=== PATIENT | female | born 1990 | race Caucasian/White ===

== ENCOUNTER 2021-01-16 06:40 | Emergency (ER) | payer SELFPAY ==
--- OUTSIDE RECORDS SUMMARY | 2021-01-16 06:43 | XMS REPORT | Continuity of Care Document ---
:1990 Author Organization [facility] t Address [address] [place] [address] Care Team Providers Name Role Phone Sharpless Primary Care Physician Earnestine Strickland DO Attending Clinician Doctor Unassigned, Name Attending Clinician Unavailable Lab, Fam Pob I Attending Clinician Unavailable Demetris ISAACS, H Attending Clinician Marilyn ISAACS, L Attending Clinician Chelsey ISAACS Attending Clinician Problems This patient has no known problems. Allergies, Adverse Reactions, Alerts This patient has no known allergies or adverse reactions. Social History Social Habit Start Date Stop Date Quantity Comments Source Sex Assigned At [facility] Alcohol Comment 2016-07-12 2016-07-12 occasional [facility] - 00:00:00 00:00:00 [facility] Alcohol intake 2016-07-12 2016-07-12 Current drinker of [facility] - 00:00:00 00:00:00 alcohol (finding) [facility] Smoking Status Start Date Stop Date Source Former smoker 2016-07-12 00:00:00 2016-07-12 00:00:00 [facility] Medications This patient has no known medications. Procedures This patient has no known procedures. Encounters Start End Encounter Admission Attending Care Care Encounter Source Date/Time Date/Time Type Type Clinicians Facility Department ID 2020-12-06 2020-12-06 Emergency Marco A, [facility] [id number] 08:38:00 12:39:00 Magda Corbin [id number] [place] [id number] [place] [id number] 2020-12-06 2020-12-06 Orders Doctor RAMONA [id number] 00:00:00 00:00:00 Only Unassigned, [place] [id number] [facility] [id number] 2020-01-17 2020-01-17 Laboratory Lab, [facility] [id number] 14:00:16 14:20:16 Only Fam Pob [facility] [id number] [place] [id number] [facility] [phone] n[place] [address] 2020-01-17 2020-01-17 Letter Doctor RAMONA [id number] 00:00:00 00:00:00 (Out) Unassigned, DEN [id number] [facility] [id number] 2019-10-16 2019-10-16 Orders Doctor GREENE [id number] 00:00:00 00:00:00 Only Unassigned, DEN [id number] [facility] [id number] 2019-10-06 2019-10-06 [facility] [id number] 08:49:36 16:20:38 ne Visit Reji Corbin [id number] [place] [id number] [place] [phone] [facility] 220 Building 2019-10-03 2019-10-03 Telephone Adum, [facility] [id number] 00:00:00 00:00:00 Yvette Corbin [id number] [place] [id number] [facility] [phone] [facility] 134 Building 2019-09-22 2019-09-22 [facility] 1.2.840.114 [id number] 00:00:00 00:00:00 Judy Corbin [id number] [place] [id number] Profess[facility] [phone] [facility] 220 Building 2019-09-22 2019-09-22 [facility] [id number] 00:00:00 00:00:00 (Out) Judy Corbin [id number] [place] [id number] Profess[facility] [phone] [facility] 220 [facility] 2019-08-28 2019-08-28 [facility] [id number] 07:56:48 09:23:28 Visit Yvette Polo [place] [id number] [place] [id number] [facility] [phone] [facility] 134 [facility] Results This patient has no known results.
[2021-01-16 08:21] LABS: SARS-COV-2 RT PCR NEGATIVE (NEGATIVE)
--- NOTE | 2021-01-16 08:41 | ER ---
Nurse's Notes [facility] Name: Juju Vega Age: 30 yrs Sex: Female : 1990 Arrival Date: 01/16/2021 Time: 06:43 Bed 24 Private MD: Diagnosis: Acute upper respiratory infection, unspecified Presentation: 01/16 07:10 Chief complaint: Patient states: sore throat, body aches, congestion, cough x 2 days aa5 ago. 07:10 Coronavirus screen: congestion, cough unrelated to allergies, sore throat. Ebola aa5 Screen: Patient negative for fever greater than or equal to 101.5 degrees Fahrenheit, and additional compatible Ebola Virus Disease symptoms. Initial Sepsis Screen: Does the patient meet any 2 criteria? No. Patient's initial sepsis screen is negative. Does the patient have a suspected source of infection? No. Patient's initial sepsis screen is negative. Risk Assessment: Do you want to hurt yourself or someone else? Patient reports no desire to harm self or others. Onset of symptoms was December 2020. 07:10 Method Of Arrival: Ambulatory aa5 07:10 Acuity: JOSE 4 aa5 Historical: - Allergies: 07:10 No Known Allergies; aa5 - PMHx: 07:10 kidney failure; Kidney stones; Pituitary tumor; aa5 - PSHx: 07:10 section; nephrostomy tubes; aa5 - Immunization history:: Adult Immunizations unknown. - Social history:: Smoking status: Patient denies any tobacco usage or history of. Screenin:57 Abuse screen: Denies threats or abuse. Denies injuries from another. Nutritional tr6 screening: No deficits noted. Tuberculosis screening: No symptoms or risk factors identified. Fall Risk None identified. Assessment: 08:56 General: Appears in no apparent distress. Behavior is calm, cooperative, appropriate tr6 for age. Pain: Complains of pain in headache and nasal congestion. Neuro: No deficits noted. Cardiovascular: No deficits noted. Capillary refill < 3 seconds Patient's skin is warm and dry. Respiratory: Airway is patent Breath sounds are clear. GI: No deficits noted. : No deficits noted. EENT: Reports nasal congestion. Derm: No deficits noted. Musculoskeletal: No deficits noted. Vital Signs: 07:10 BP 115 / 82; Pulse 89; Resp 16 S; Temp 97.5(TE); Pulse Ox 99% on R/A; Weight 74.84 kg aa5 (R); Height 5 ft. 7 in. (170.18 cm) (R); 07:10 Body Mass Index 25.84 (74.84 kg, 170.18 cm) aa5 ED Course: 06:43 Patient arrived in ED. es 07:10 Arm band placed on. aa5 07:12 Triage completed. aa5 07:14 Keegan Ruff PA is PHCP. cp 07:14 Mario Sewell MD is Attending Physician. cp 08:45 Svitlnaa Sandoval, RN is Primary Nurse. tr6 08:57 Patient has correct armband on for positive identification. Bed in low position. Adult tr6 w/ patient. Door closed. Noise minimized. Visitors limited. Lights dimmed. Moved to private room. 08:57 No provider procedures requiring assistance completed. Patient did not have IV access tr6 during this emergency room visit. Administered Medications: No medications were administered Outcome: 08:40 Discharge ordered by MD. cp 08:57 Discharged to home ambulatory. tr6 08:57 Condition: stable 08:57 Discharge instructions given to patient, Instructed on discharge instructions, Demonstrated understanding of instructions, follow-up care, medications, Prescriptions given X 2. 08:58 Patient left the ED. tr6 Signatures: Laura Crews Audri, RN RN aa5 Keegan Ruff PA PA cp Ramnanan, Tiffany, RN RN tr6
--- NOTE | 2021-01-16 08:41 | EDPHYS ---
Physician Documentation [facility] Name: Juju Vega Age: 30 yrs Sex: Female : 1990 Arrival Date: 01/16/2021 Time: 06:43 Bed 24 Private MD: ED Physician Mario Sewell HPI: 01/16 07:14 This 30 yrs old Female presents to ER via Ambulatory with complaints of cp Congestion, Body aches. 07:14 The patient or guardian reports cough, that is intermittent, flu symptoms, body aches. cp Onset: The symptoms/episode began/occurred 2 day(s) ago. Associated signs and symptoms: Pertinent positives: fever, sore throat, sinus congestion, Pertinent negatives: diarrhea, vomiting. Severity of symptoms: in the emergency department the symptoms have improved mildly. Historical: - Allergies: 07:10 No Known Allergies; aa5 - PMHx: 07:10 kidney failure; Kidney stones; Pituitary tumor; aa5 - PSHx: 07:10 section; nephrostomy tubes; aa5 - Immunization history:: Adult Immunizations unknown. - Social history:: Smoking status: Patient denies any tobacco usage or history of. ROS: 07:20 Constitutional: Positive for body aches, Negative for fever, poor PO intake. cp 07:20 Eyes: Negative for injury, pain, redness, and discharge. cp 07:20 ENT: Positive for sinus congestion, sore throat, Negative for drainage from ear(s), ear pain, difficulty swallowing, difficulty handling secretions. 07:20 Cardiovascular: Negative for chest pain, palpitations. 07:20 Respiratory: Positive for slight cough. 07:20 Abdomen/GI: Negative for abdominal pain, nausea, vomiting, and diarrhea. 07:20 Neuro: Negative for altered mental status, dizziness, headache, weakness. 07:20 All other systems are negative. Exam: 07:25 Constitutional: The patient appears in no acute distress, alert, awake, comfortable, cp non-toxic, well developed, well nourished. 07:25 Head/Face: Normocephalic, atraumatic. cp 07:25 Eyes: Periorbital structures: appear normal, Conjunctiva: normal, no exudate, no injection, Sclera: no appreciated abnormality, Lids and lashes: appear normal, bilaterally. 07:25 ENT: External ear(s): are unremarkable, Ear canal(s): are normal, clear, TM's: bulging, is not appreciated, bilaterally, dullness, bilaterally, erythema, is not appreciated, bilaterally, Nose: is normal, Mouth: Lips: moist, Oral mucosa: moist, Posterior pharynx: Airway: no evidence of obstruction, patent, Tonsils: with erythema, no enlargement, no exudate, Uvula: midline, erythema, that is mild, exudate, is not appreciated. 07:25 Neck: ROM/movement: is normal, is supple, no meningismus, no nuchal rigidity, Lymph nodes: no appreciated lymphadenopathy. 07:25 Chest/axilla: Inspection: normal, Palpation: is normal, no crepitus, no tenderness. 07:25 Cardiovascular: Rate: normal, Rhythm: regular. 07:25 Respiratory: the patient does not display signs of respiratory distress, Respirations: normal, no use of accessory muscles, no retractions, labored breathing, is not present, Breath sounds: are clear throughout, no decreased breath sounds, no stridor, no wheezing. 07:25 Abdomen/GI: Exam negative for discomfort, distension, guarding, Inspection: abdomen appears normal. 07:25 Skin: no rash present. Vital Signs: 07:10 BP 115 / 82; Pulse 89; Resp 16 S; Temp 97.5(TE); Pulse Ox 99% on R/A; Weight 74.84 kg aa5 (R); Height 5 ft. 7 in. (170.18 cm) (R); 07:10 Body Mass Index 25.84 (74.84 kg, 170.18 cm) aa5 MDM: 08:00 Differential diagnosis: bronchitis, flu, URI. cp 08:35 Patient medically screened. cp 08:40 Data reviewed: vital signs, nurses notes, lab test result(s). cp 08:40 Counseling: I had a detailed discussion with the patient and/or guardian regarding: the cp historical points, exam findings, and any diagnostic results supporting the discharge/admit diagnosis, lab results, to return to the emergency department if symptoms worsen or persist or if there are any questions or concerns that arise at home. 01/16 07:17 Order name: Strep; Complete Time: 08:36 cp 01/16 08:10 Order name: Throat Culture EDNE 01/16 08:21 Order name: COVID-19/FLU A+B; Complete Time: 08:36 EDMS Administered Medications: No medications were administered Disposition Summary: 01/16/21 08:40 Discharge Ordered Location: Home cp Problem: new cp Symptoms: are unchanged cp Condition: Stable cp Diagnosis - Acute upper respiratory infection, unspecified cp Followup: cp - With: Private Physician - When: 2 - 3 days - Reason: Worsening of condition Discharge Instructions: - Discharge Summary Sheet cp - Upper Respiratory Infection, Adult cp Forms: - Medication Reconciliation Form cp - Thank You Letter cp - Antibiotic Education cp - Prescription Opioid Use cp Prescriptions: - Flonase Allergy Relief 50 mcg/actuation Nasal spray,suspension - spray 1 spray by INTRANASAL route once daily As needed; 1 Applicator; Refills: cp 0, Product Selection Permitted - Tessalon Perles 100 mg Oral Capsule - take 1 capsule by ORAL route every 8 hours As needed; 15 capsule; Refills: 0, cp Product Selection Permitted Signatures: Dispatcher [employer] Kendal Fuentes RN RN aa5 Keegan Ruff PA PA cp Corrections: (The following items were deleted from the chart) 07:41 07:18 CORONAVIRUS+MR.LAB.BRZ ordered. EDMS EDMS 07:42 07:18 Influenza Screen (A \T\ B)+BA.LAB.BRZ ordered. EDMS EDMS
[2021-01-16 20:17] VITALS: BP 115/82; TEMP 97.5; O2SAT 99
== END 2021-01-16 08:58 | disposition home or self-care (01) ==
LOC: ER 06:40
DX: J06.9 Acute upper respiratory infection, unspecified (principal); N19 Unspecified kidney failure; Z20.822 Contact with and (suspected) exposure to COVID-19
CPT/HCPCS: 0240U; 87070; 87081; 99282